=== PATIENT | male | born 1950 | race Caucasian/White ===

== ENCOUNTER → 2020-02-14 10:33 | Outpatient (CLI) | payer MEDICARE, SELFPAY ==
[2020-02-14 11:40] LABS: Coronavirus 19 IgG Antibody Negative (Negative); Coronavirus 19 IgM Antibody Negative (Negative)
== END ==
PROVIDERS: Visit Provider Internal Medicine Gastroenterology
DX: Z01.818 Encounter for other preprocedural examination (principal); Z13.810 Encounter for screening for upper gastrointestinal disorder; Z12.11 Encounter for screening for malignant neoplasm of colon
CPT/HCPCS: 36415; 86328

== ENCOUNTER 2020-02-16 10:47 | Day surgery (SDC) | payer MEDICARE, SELFPAY ==
[2020-02-12 11:30] VITALS: BMI 34.4
[2020-02-16] VITALS (10 sets, daily range): BP systolic 108–159; BP diastolic 69–97; PULSE 55–97; RESP 18; TEMP 36.5–36.7; O2SAT 93–99
[2020-02-16 11:18] LABS: POC Glucose,Bedside 168 (70-110)
--- NOTE | 2020-02-16 11:41 | HMH.PROC ---
[facility] Procedure Note Procedure Note:: Upper Endoscopy Procedure Report: Esophagogastroduodenoscopy with cold biopsies Endoscopost: Nicolás Couch II, MD Referring Physician: Dylan Prince MD Date of Procedure: February 16, 2020 Equipment: Olympus GIF 180 standard upper endoscope Sedation: MAC sedation Indications: Mr. Tran is a 69-year-old gentleman with chronic reflux, dyspepsia and bloating. He has had burning upper abdominal discomfort. The patient does report worsening constipation/obstipation. He does sometimes need opiate analgesics which contribute to the constipation but does not take this daily. The patient was given combined MiraLAX plus Konsyl. He is improved some. 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 Procedure: Prior to the procedure, a history and physical exam was performed, and patient's medications and allergies were reviewed. The risks, benefits and alternatives of the sedation and procedure were discussed with the patient. All questions were answered and informed consent was obtained. The patient was brought to the procedure room. Patient identification and proposed procedure were verified by the physician and the nurse. The patient was placed in a left lateral decubitus position and the scope was passed under direct vision. Throughout the procedure, the patient's blood pressure, pulse, and oxygen saturations were monitored continuously. The upper GI endoscopy was accomplished without difficulty. The patient tolerated the procedure well. Findings: The scope was passed directly into the upper esophagus and advanced to the third portion of the duodenum. There was some superficial erosion identified all along the conniventes in the post bulbar duodenum which was very mild but biopsies were obtained. There was a tiny 3 mm polyp or nodule in the duodenal bulb that was removed via cold biopsies. There was no ulcerations or erosions. The scope was withdrawn through a normal pylorus into the stomach. There was some linear reactive gastropathy of the antrum. The remainder of the antrum, body and fundus of the stomach were grossly normal. Upon retroflexion there was no hiatal hernia. 2 biopsies were taken in the antrum and along the lesser curvature for histology to rule out gastritis and/or H pylori. The scope was then withdrawn into the esophagus. There was a serrated Z-line consistent with nonerosive GERD. There was no evidence of reflux esophagitis or Boyle's. There was no Schatzki's ring. There were tertiary contractions and evidence of mild esophageal dysmotility. The remainder of the esophageal mucosa was normal. Impression: 1. Nonerosive GERD with mild esophageal dysmotility 2. Mild linear reactive gastropathy 3. Mild acute/chronic duodenitis with small duodenal bulb polyp (3 mm) Plan: I will follow-up the biopsies. We will discuss treatment of his ongoing functional dyspepsia. I will proceed with colonoscopy.
--- NOTE | 2020-02-16 12:04 | HMH.PROC ---
[facility] Procedure Note Procedure Note:: Colonoscopy Procedure Report: Colonoscopy with cold snare polypectomy Endoscopist: Nicolás Couch II, MD Referring physician: Dylan Prince MD Date of Procedure: February 16, 2020 Equipment: Olympus 180 variable stiffness pediatric colonoscope Sedation: MAC sedation Indication: Mr. Tran is a 69-year-old gentleman who is here for diagnostic colonoscopy secondary to ongoing dyspepsia, bloating and obstipation/incomplete defecation. He has improved some since starting the MiraLAX plus Konsyl fiber (rather than Metamucil). He has noted some hemorrhoidal bleeding intermittently. 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 He underwent left hemicolectomy. His last colonoscopy in November 2017 revealed 5 polyps (tubular adenomas x3/small serrated adenomas x2) which were removed. He reports no family history of colon cancer. Procedure: Prior to the procedure, a history and physical exam was performed, and patient's medications and allergies were reviewed. The risks, benefits and alternatives of the sedation and procedure were discussed with the patient. All questions were answered and informed consent was obtained. The patient was brought to the procedure room. Patient identification and proposed procedure were verified by the physician and the nurse. The patient was placed in a left lateral decubitus position and the scope was passed under direct vision. Throughout the procedure, the patient's blood pressure, pulse, and oxygen saturations were monitored continuously. The colonoscopy was accomplished without difficulty. The patient tolerated the procedure well. Findings: On digital rectal examination there was normal rectal tone. There were no external hemorrhoids. The prostate was 2+, mildly firm but symmetric without nodules. The colonoscope was introduced through the anal canal to the rectum and advanced to the cecum. The ileocecal valve and appendiceal orifice were identified. The scope was advanced a short distance into the ileum which appeared grossly normal. The scope was then withdrawn into the colon. There were a total of 7 colon polyps (cecal x2 (3 and 6 mm), transverse x3 (3, 5 and 7 mm) and ascending x2 (4 and 8 mm)) which were all removed via cold snare polypectomy. The anastomotic line was normal. There were no other mucosal abnormalities. Upon retroflexion within the rectum there were grade 2 internal hemorrhoids.The preparation was excellent throughout with [place] Preparation Score of 9. The cecal time was 11 minutes. Impression: 1. Colonic polyps x7 2. Normal anastomosis with prior left hemicolectomy 3. Grade 2 internal hemorrhoids Plan: I will follow up the polyp pathology and recommend repeat colonoscopy again in 3 years based upon the polyp histology. I would encourage continuation of the fiber bowel regimen (combined MiraLAX plus Konsyl mixed together p.o. every morning) on a long-term daily maintenance basis. I would also recommend that he maintain good compliance with the soft fiber diet and low starch/low sucrose diet. We will discuss additional treatment options of his dyspepsia.
--- NOTE | 2020-02-16 12:29 | P.PN_ITS ---
[facility] Anesthesia Checklist - Patient Identification Patient Identification: Arm Band - Structural Data Admitted From: Home Planned Operative Procedure/s: egd/colonoscopy Consent for Planned Operative Procedure(s) Verified: Yes Verified Documents: Surgical Consent, History and Physical - NPO Status Verified Time NPO: 00:00 - Additional verifications Anesthesia Reactions: No - Airway Assessment C-Spine Mobility Assessed: Yes (mp2) TMJ Mobility Assessed: Yes Dentition: Good Dentition - Neurological Assessment Level of Consciousness: Awake, Alert - Anesthesia Plan Anesthesia Risk discussed: Yes Anesthesia Plan: Verified ASA Class: III Anesthesia Type: MAC [facility] History I have reviewed the patient's past medical history: Yes Medical History: Reports:: Coronary Artery Disease, Diabetes Mellitus Type 2, Gastroesophageal Reflux Disease(GERD), Lung Disease (benedict) Denies:: Cancer, Diabetes Mellitus Type 1, Internal Pacemaker, MRSA, Seizures *Have you ever received a pneumonia vaccine?: Yes *Have you received a flu vaccine this season?: Yes Anesthesia experience/problems:: nac Laterality Cases: Bilateral: Cataract Other Surgeries: Yes: Colonoscopy, EGD, Hernia Repair, Other. No: Pacemaker Amputation: No Fractures: No - *Social History Last grade of school completed: Some college Smoking Status: Never smoker Alcohol Intake: never Substance Use Type: denies use *Occupational Status:: retired Housing: house Household Members: spouse *Travel in the last 8 weeks: None Family Hx:: No significant family history
--- NOTE | 2020-02-16 13:17 | HMH.CNCARD ---
History of Present Illness Consult date: 02/16/20 Requesting physician: Real Mensah Consult reason: atrial fibrillation Chief complaint: A. fib Additional Medical History:: 1. Obstructive sleep apnea, BiPAP use 2. Diabetes mellitus, insulin requiring, treated for 10 years 3. Coronary artery disease with history of ANA, approximately 2013, followed by Dr. Ennis in [place], [place] A. Stress test approximately 2018, normal per patient 4. Paroxysmal atrial fibrillation status post colonoscopy, 02/16/2020 A. CHADS-VASC score of 2 (age, CAD) for which Xarelto therapy instituted along with metoprolol for rhythm and rate control. History of present illness: 69-year-old white male here for combination EGD and colonoscopy by Dr. Couch. Perioperatively patient went into a rapid ventricular rhythm with telemetry strips suspected to show atrial fibrillation. At my time of the exam the strips are unavailable for review but while interviewing the patient he did have intermittent atrial fibrillation activity/PAT on the monitor. Patient denies any chest pain, pressure or tightness. No prior history of stroke or seizure activity. He does not smoke. Cardiology asked to see the patient for evaluation. [facility] History Medical History: Reports:: Coronary Artery Disease, Diabetes Mellitus Type 2, Gastroesophageal Reflux Disease(GERD), Lung Disease (benedict) Denies:: Cancer, Diabetes Mellitus Type 1, Internal Pacemaker, MRSA, Seizures *Have you ever received a pneumonia vaccine?: Yes *Have you received a flu vaccine this season?: Yes Anesthesia experience/problems:: nac Laterality Cases: Bilateral: Cataract Other Surgeries: Yes: Colonoscopy, EGD, Hernia Repair, Other. No: Pacemaker Amputation: No Fractures: No - *Social History Last grade of school completed: Some college Smoking Status: Never smoker Alcohol Intake: never Substance Use Type: denies use *Occupational Status:: retired Housing: house Household Members: spouse *Travel in the last 8 weeks: None Family Hx:: No significant family history Meds Home Medications Medication Instructions Recorded Confirmed Type Aspirin 81 mg PO DAILY 02/12/20 02/16/20 History Insulin Aspart Prot/Insuln Asp 20 - 40 unit SQ BID 02/12/20 02/16/20 History [Novolog Mix 70-30 Vial] Multivitamin [Multivitamins] 1 each PO DAILY 02/12/20 02/16/20 History metoprolol succinate 50 mg 50 mg PO DAILY #30 tab 02/16/20 Rx tablet,extended release 24 hr Allergies Allergy/AdvReac Type Severity Reaction Status Date / Time Penicillins Allergy Verified 02/16/20 11:03 Exam Vital signs and Labs for Last 24 Hours: Temp Pulse Resp BP Pulse Ox 97.7 F 97 H 18 159/82 H 99 02/16/20 12:45 02/16/20 12:45 02/16/20 12:45 02/16/20 12:45 02/16/20 12:45 Laboratory Results - last 24 hr 02/16/20 11:11: POC Glucose 168 H - Constitutional no acute distress - *Routine HEENT Exam Head: Present: normocephalic Eye: Present: EOMI, PERRL ENT: Present: mucous membranes moist - *Routine Neck Exam Present: supple. Absent: lymphadenopathy - *Routine Respiratory Exam Present: CTA bilaterally - *Routine Cardiovascular Exam Present: RRR, murmur - *Routine Abdominal Exam Present: soft, normoactive bowel sounds. Absent: tenderness - *Routine Extremities Exam Absent: cyanosis, clubbing, edema - *Routine Skin Exam Present: warm. Absent: rash - *Routine Neurological Exam Present: alert, oriented X3 Review of Systems - Review of Systems Review of systems:: pertinent systems reviewed and negative unless documented below Assessment and Plan (1) Paroxysmal atrial fibrillation with rapid ventricular response Status: Acute Category: Medical Code(s): I48.0 - Paroxysmal atrial fibrillation (2) Obstructive sleep apnea of adult Status: Acute Category: Medical Code(s): G47.33 - Obstructive sleep apnea (adult) (pediatric) (3) Diabetes mellitus type 2 in obese Status:
[2020-02-16 13:20] LABS: Blood Urea Nitrogen 11 mg/dl (9-20); Creatinine Clearance Estimated 106 mL/min (50-200); Estimated Glomerular Filt Rate 96 ml/min (>60); GFR (African American) 116 ML/MIN (>60)
--- NOTE | 2020-02-16 13:23 | ECG_ITS ---
APPROVED REPORT Exam: Resting ECG HR:80 bpm ECG Measurements Heart Rate 80 AXES IL 184 P 30 QRSd 96 QRS -8 QT 384 T 59 QTc 442 Conclusion Sinus rhythm with frequent premature ventricular complexes Anterior infarct, age undetermined T wave abnormality, consider lateral ischemia Abnormal ECG Electronically signed by : Julio Kebede, 02/17/2020 16:49:56
== END 2020-02-16 13:55 | disposition home or self-care (01) ==
LOC: OUTP 10:52
PROVIDERS: PCP Pediatrics; Visit Provider Internal Medicine Gastroenterology
PROC: 0DJ08ZZ Inspection of Upper Intestinal Tract, Via Natural or Artificial Opening Endoscopic (ICD-10-PCS; CPT 43235; principal; 2020-02-16 12:00)
DX: K62.5 Hemorrhage of anus and rectum (principal); K64.1 Second degree hemorrhoids; K21.9 Gastro-esophageal reflux disease without esophagitis; K22.4 Dyskinesia of esophagus; K31.9 Disease of stomach and duodenum, unspecified; K29.80 Duodenitis without bleeding; K31.7 Polyp of stomach and duodenum; Z90.49 Acquired absence of other specified parts of digestive tract; Z87.19 Personal history of other diseases of the digestive system; Z86.010 Personal history of colon polyps; E11.9 Type 2 diabetes mellitus without complications; I25.10 Atherosclerotic heart disease of native coronary artery without angina pectoris
CPT/HCPCS: 43239; 45385; 82565; 82962; 84520; 88305; 93005

== ENCOUNTER → 2020-02-17 08:01 | Outpatient (CLI) | payer MEDICARE, SELFPAY ==
--- NOTE | 2020-02-17 08:08 | CT_ITS ---
PROCEDURE: CT ABDOMEN PELVIS W CON CLINICAL INDICATION: ABD PAIN Abdominal pain, postprandial pain COMPARISON: No exams were available for comparison TECHNIQUE: IV Contrast: 75ML Isovue 370 Oral Contrast 450ml Redicat Axial images obtained with sagittal and coronal reformats. All CT scans at the facility use one or more dose reduction, viz: automated exposure control, ma/kV adjustment per patient size (including targeted exams where dose is matched to indication, i.e. head), or iterative reconstruction technique. FINDINGS: LOWER THORAX: There are mild atelectatic or fibrotic changes in the lung bases. Coronary artery calcifications and/or stents noted ABDOMEN & PELVIS: No focal liver lesion is evident. There is mild fatty infiltration of the liver. The gallbladder, spleen, adrenal glands, and pancreas have an unremarkable appearance. No intestinal obstruction or free air. No renal or ureteral calculi. No hydronephrosis. No evidence of appendicitis. There is an anastomosis noted in the sigmoid colon. No evidence of diverticulitis. No acute bony findings. There is degenerative disc disease of the lumbar spine with kyphosis. IMPRESSION: 1. No acute abdominal or pelvic findings. 2. Fatty liver Dictated by: Eric Jean-Baptiste MD 02/18/2020 11:41 Eric Jean-Baptiste MD in [place] 02/18/2020 11:41
== END ==
PROVIDERS: PCP Pediatrics; Visit Provider Internal Medicine Gastroenterology
DX: R10.9 Unspecified abdominal pain (principal)
CPT/HCPCS: 74177; Q9967